=== PATIENT | female | born 1990 | race Native Hawaiian/Other Pacific Islander ===

== ENCOUNTER 2022-09-11 13:32 | Emergency (ER) | payer OTHER ==
[~2022-09-11] VITALS: Ht 149.9 cm; Wt 86.2 kg
[2022-09-11 13:36] VITALS: TEMP 98.9
[2022-09-11 14:07] LABS: PLATELET COUNT 262 K/uL (152-353)
[2022-09-11 14:12] LABS: POTASSIUM 3.7 mmol/L (3.6-5.2)
[2022-09-11 15:01] VITALS: BP 133/81
== END 2022-09-11 15:20 | disposition home or self-care (01) ==
LOC: ED 13:32
PROVIDERS: Emergency Medicine
DX: J42 Unspecified chronic bronchitis (principal); Z87.891 Personal history of nicotine dependence
CPT/HCPCS: 80053; 81025; 85027; 94664; 96372; 99283; J1100